=== PATIENT | female | born 1960 | race Caucasian/White ===

== ENCOUNTER 2016-10-22 11:37 | Emergency (ER) | payer BC ==
[2016-10-22] MEDS ORDERED: predniSONE 20 MG TABLET PO STA (11:58)
[2016-10-22] MEDS ORDERED: BENZONATATE 100 MG CAPSULE PO STA (11:58)
[2016-10-22] MEDS ORDERED: IPRATROPIUM/ALBUTEROL 3 ML NEB INH STA (11:58)
[2016-10-22] MEDS ORDERED: predniSONE 20 MG TABLET ONE (12:04)
[2016-10-22] MEDS ORDERED: BENZONATATE 100 MG CAPSULE PO ONE (12:04)
[2016-10-22] MEDS ORDERED: IPRATROPIUM/ALBUTEROL 3 ML NEB INH ONE (12:14)
--- NOTE | 2016-10-22 12:15 | ED Physician Documentation ---
PD HPI URI - Stated complaint Stated Complaint: SOA,COUGH - Chief complaint Chief Complaint: Resp - History obtained from History obtained from: Patient - History of Present Illness Timing - onset: How many weeks ago (1) Timing duration: Weeks (1) Timing details: Gradual onset Pain level max: 0 Pain level now: 0 Associated symptoms: Nasal congestion, Rhinorrhea, Dry cough, Dyspnea. No: Fever, Chills Contributing factors: Travel (visiting from [place]), COPD / asthma Improves by: Rest, MDI/nebulizer Worsened by: Activity, Breathing Similar symptoms before: Diagnosis (asthma, pneumonia) Recently seen: Not recently seen Review of Systems Constitutional: denies: Fever, Chills Nose: reports: Rhinorrhea / runny nose, Congestion Respiratory: reports: Cough, Wheezing GI: denies: Abdominal Pain, Nausea, Vomiting, Diarrhea Skin: denies: Rash Musculoskeletal: denies: Neck pain, Back pain PD PAST MEDICAL HISTORY - Past Medical History Past Medical History: Yes Cardiovascular: Hypertension Respiratory: Asthma GI: Diverticulitis Psych: Depression - Past Surgical History Past Surgical History: Yes General: Cholecystectomy - Present Medications Home Medications: Ambulatory Orders Medication Instructions Recorded Confirmed Albuterol 1 puffs PRN 10/22/16 Benzonatate [Tessalon Perle] 100 - 200 mg PO TID PRN #30 capsule 10/22/16 Cetirizine HCl/Pseudoephedrine 1 each PO BID PRN #30 tab.er.12h 10/22/16 [Zyrtec-D Tablet] FLUoxetine [PROzac] 40 mg PO DAILY 10/22/16 10/22/16 Fluticasone/Salmeterol [Advair 1 tab PO DAILY 10/22/16 10/22/16 100-50 Diskus] Olmesartan/Hydrochlorothiazide 1 tab PO DAILY 10/22/16 10/22/16 [Benicar Hct 20-12.5 mg Tablet] Prednisone 40 mg PO DAILY #10 tablet 10/22/16 - Allergies Allergies/Adverse Reactions: Allergies Allergy/AdvReac Type Severity Reaction Status Date / Time No Known Drug Allergies Allergy Verified 10/22/16 11:42 - Social History Does the pt smoke?: No Smoking Status: Never smoker Does the pt drink ETOH?: No Does the pt have substance abuse?: Yes Substance Use and Type: Marijuana PD ED PE NORMAL - Vitals Vital signs reviewed: Yes - General General: Alert and oriented X 3, No acute distress - HEENT HEENT: Ears normal, Moist mucous membranes, Pharynx benign, Other (clear rhinorrhea) - Neck Neck: Supple, no meningeal sign - Cardiac Cardiac: RRR, Strong equal pulses - Respiratory Respiratory: No respiratory distress, Other (wheezing and decreased BS bilaterally.) - Abdomen Abdomen: Soft, Non tender, Non distended - Derm Derm: Warm and dry - Extremities Extremities: No edema, No calf tenderness / cord - Neuro Neuro: Alert and oriented X 3 - Psych Psych: Normal mood, Normal affect Results - Vitals Vitals: Vital Signs - 24 hr 10/22/16 10/22/16 10/22/16 11:39 12:15 13:10 Temperature 36.2 C L Heart Rate 86 87 88 Respiratory 18 12 14 Rate Blood Pressure 132/92 H O2 Saturation 98 10/22/16 13:39 Temperature 36.3 C L Heart Rate 85 Respiratory 16 Rate Blood Pressure 128/87 H O2 Saturation 98 Oxygen O2 Source Room air - Rads (name of study) cxr Radiology: Prelim report reviewed, EMP read contemporaneously, See rad report ( No acute disease) PD MEDICAL DECISION MAKING - ED course Complexity details: reviewed results, re-evaluated patient, considered differential, d/w patient ED course: Patient is a 56-year-old female who presents to the emergency department with what appears to be a viral URI. She was given steroids, Tessalon and wheezing resolved. Feels better. Will continue supportive care. No acute findings on x -ray. No hypoxia. No evidence of pulmonary embolus. Patient counseled regarding signs and symptoms for which I believe and urgent re-evaluation would be necessary. Patient with good understanding of and agreement to plan and is comfortable going home at this time This document was made in part using voice recognition software. While efforts are made to proofread this document, sound alike and grammatical errors may occur. Departure - Departure Disposition: 01 Home, Self Care Clinical Impression: Upper respiratory tract infection Qualifiers: URI type: unspecified viral URI Qualified Code(s): J06.9 - Acute upper respiratory infection, unspecified Asthma Qualifiers: Asthma severity: unspecified severity Asthma complication type: with acute exacerbation Qualified Code(s): J45.901 - Unspecified asthma with (acute) exacerbation Condition: Good Instructions: ED Reactive Airway Disease, ED URI Viral Follow-Up: your,doctor in 1 week [Other] Prescriptions: Prednisone 40 mg PO DAILY #10 tablet Benzonatate [Tessalon Perle] 100 - 200 mg PO TID PRN #30 capsule PRN Reason: Cough Cetirizine HCl/Pseudoephedrine [Zyrtec-D Tablet] 1 each PO BID PRN #30 tab.er.12h PRN Reason: Nasal Congestion Comments: Return if you worsen. This should improve over the next week. Your blood pressure was elevated today on check in to the emergency department. This does not mean that you have hypertension, it is a common phenomenon to check into the emergency department and have elevated blood pressure. I recommend that you see your primary care physician within the week to have it rechecked when you're feeling better. Discharge Date/Time: 10/22/16 13:39
--- NOTE | 2016-10-22 12:44 | XRAY Preliminary Report ---
Exam: XR Chest 2 View PA/LAT IMPRESSION: Normal chest age and body size. No pneumonia, CHF or other demonstrated cause for persist ent cough. [facility] SITE ID: [id number]
--- NOTE | 2016-10-22 12:46 | XRAY Report ---
EXAM: CHEST RADIOGRAPHY, 2 VIEWS EXAM DATE: 10/22/2016 12:28 PM. CLINICAL HISTORY: 56-year-old female with one-week history of cough. COMPARISON: None. TECHNIQUE: Upright PA and lateral views. FINDINGS: Lungs/Pleura: No focal opacities evident. No pleural effusion. No pneumothorax. Normal volumes. Mediastinum: Heart and mediastinal contours are unremarkable. No pulmonary vascular congestion or carolynn nopathy. Other: Trachea is midline. Osseous structures are unremarkable. IMPRESSION: Normal chest age and body size. No pneumonia, CHF or other demonstrated cause for persist ent cough. [facility] Referring Provider Line: [phone] SITE ID: [id number]
[2016-10-22] MEDS ORDERED: ALBUTEROL NEB 2.5 MG/3 ML INH STA (12:54)
[2016-10-22] MEDS ORDERED: ALBUTEROL NEB 2.5 MG/3 ML INH ONE (13:13)
[2016-10-22 13:40] VITALS: BP 128/87
== END 2016-10-22 13:39 | disposition home or self-care (01) ==
LOC: ED 11:37
DX: J06.9 Acute upper respiratory infection, unspecified (principal); J45.901 Unspecified asthma with (acute) exacerbation; I10 Essential (primary) hypertension
CPT/HCPCS: 71020; 94640; 99282; 99283; A9270; J7512; J7613; J7620